=== PATIENT | male | born 1980 | race African-American/Black ===

== ENCOUNTER 2018-01-09 20:56 | Emergency (ER) | payer OTHER ==
[2018-01-09 21:12] VITALS: BP 137/95; PULSE 102; TEMP 99; BMI 25.0
--- NOTE | 2018-01-09 22:08 | PDOC ---
History of Present Illness - General Chief Complaint: Ingestion Stated Complaint: GIVEN WRONG MEDICATIONS AT [facility] Time Seen by Provider: 01/09/18 21:02 - History of Present Illness Initial Comments: This 37 y.o man, resident of [facility], history of bipolar disorder, presents to the ER with staff member with history of inadvertently been given medications of another resident instead of his own about 2 hours prior to presentation. Of note, medications mistakenly given include [place] and paliperidone. The patient has a history of haloperidol allergy listed but neither he nor staff member know what symptoms of the allergic reaction were. The patient states that he had "stomach ache" and mild nausea(no vomiting) soon after ingestion of meds. Only mild epigastric discomfort persists currently. Patient denies other symptoms Past History - Past Medical History Allergies/Adverse Reactions: Allergies Allergy/AdvReac Type Severity Reaction Status Date / Time Butyrophenones Allergy Verified 01/09/18 21:01 haloperidol [From Haldol] Allergy Verified 01/09/18 21:01 haloperidol lactate Allergy Verified 01/09/18 21:01 [From Haldol] Home Medications: Ambulatory Orders Divalproex [Depakote -] 750 mg PO BID 04/29/16 Docusate Sodium 300 mg PO HS 04/29/16 Fluticasone Propionate [Flonase Allergy Relief] 2 spray NS DAILY 04/29/16 Glycopyrrolate [Robinul Forte] 2 mg PO BID 04/29/16 Multivitamins [Tab-A-Vit -] 1 tab PO DAILY 04/29/16 COPD: No Psychiatric Problems: Yes (bipolar) - Immunization History Immunization Up to Date: Yes - Suicide/Smoking/Psychosocial Hx Smoking Status: No Smoking History: Never smoked Have you smoked in the past 12 months: No Number of Cigarettes Smoked Daily: 0 Information on smoking cessation initiated: No Hx Alcohol Use: No Drug/Substance Use Hx: No Substance Use Type: None *Physical Exam - Vital Signs Last Vital Signs Temp Pulse Resp BP Pulse Ox 99 F 102 H 18 137/95 100 01/09/18 21:07 01/09/18 21:07 01/09/18 21:07 01/09/18 21:07 01/09/18 21:07 - Physical Exam Comments: Physical Exam- Alert and oriented X3, fluent speech, no acute distress HEENT- Eyes: no conjunctival erythema/edema; pupils equal and reactive 3mm; no anterior chamber /scleral abnormalities Pharynx: moist mucous membranes, no edema/erythema/ masses Neck- supple, no masses or stridor Lungs-clear Cardiac- S1S2 normal, no xs,rubs,murmurs Abdomen-soft,non-tender, no masses or organomegaly Extremities- non-edematous, no tenderness or masses Neuro- Cranial nerve exam grossly intact, speech fluent, moving all 4 extremities equally Skin- no rashes/lesions/cyanosis Medical Decision Making - Medical Decision Making In order to R/O QT interval prolongation, 12 lead EKG performed and interpreted by me: NSR at 77/min, waveforms and axis are normal. Intervals(including QTc 393ms) are normal. No evidence of acute ST or T wave abnormalities Patient was given 30ml Maalox for epigastric discomfort with good relief. He was observed for an additional hour without development of new symptoms. The patient was discharged back to [facility] in the company of the staff member with advice to followup with general physician within 2 days. He should return to ER if severe symptoms occur *DC/Admit/Observation/Transfer Diagnosis at time of Disposition: Medication administered in error Qualifiers: Encounter type: initial encounter Injury intent: accidental or unintentional Qualified Code(s): T50.901A - Poisoning by unspecified drugs, medicaments and biological substances, accidental (unintentional), initial encounter - Discharge Dispostion Disposition: HOME Condition at time of disposition: Stable - Referrals - Patient Instructions Additional Instructions: return to ER if you have increased pain or experience shortness of breath/nausea can resume usual activities and medications followup with your doctor within 3-4 days - Post Discharge Activity
[2018-01-09] MEDS ORDERED: MAG HYDROX/AL HYDROX/SIMETH 30 ML UNIT-DOSE CUP PO ONE (22:15)
[2018-01-09] MEDS ORDERED: MAG HYDROX/AL HYDROX/SIMETH 30 ML UNIT-DOSE CUP ONE (22:17)
--- NOTE | 2018-01-10 23:56 | EKG ---
Test Reason : Blood Pressure : / mmHG Vent. Rate : 077 BPM Atrial Rate : 077 BPM P-R Int : 142 ms QRS Dur : 102 ms QT Int : 348 ms P-R-T Axes : 044 001 054 degrees QTc Int : 393 ms NORMAL SINUS RHYTHM NORMAL ECG WHEN COMPARED WITH ECG OF 29-APR-2016 09:33, NO SIGNIFICANT CHANGE WAS FOUND Confirmed by COLUMBA CODY MD ([id number]) on 01/10/2018 11:55:58 PM Referred By: DOROTHY Confirmed By:COLUMBA CODY MD
== END 2018-01-09 22:57 | disposition home or self-care (01) ==
LOC: FER 20:56
DX: T50.901A Poisoning by unspecified drugs, medicaments and biological substances, accidental (unintentional), initial encounter (principal); F31.9 Bipolar disorder, unspecified; X58.XXXA Exposure to other specified factors, initial encounter; Y93.89 Activity, other specified; Y92.159 Unspecified place in reform school as the place of occurrence of the external cause
CPT/HCPCS: 93005; 99281-25

== ENCOUNTER 2018-03-08 07:43 | Emergency (ER) | payer OTHER ==
[2018-03-08] MEDS ORDERED: ACETAMINOPHEN 325 MG TABLET (FP) ONE (07:52)
[2018-03-08] MEDS ORDERED: SODIUM CHLORIDE 1,000 ML IV STA (07:52)
[2018-03-08] MEDS ORDERED: ACETAMINOPHEN 500 MG TABLET (FP) PO ONE (07:53)
--- NOTE | 2018-03-08 07:54 | PDOC ---
History of Present Illness - General Stated Complaint: Syncope/Near Syncope Time Seen by Provider: 03/08/18 07:51 - History of Present Illness Initial Comments: 03/08/18 07:54 Mr. Almaguer is a 37 yo male w/ pmh of MR, psychotic disorder, bipolar disorder , and baseline tremor who presents for evaluation after syncopal episode earlier today after he began having generalized abdominal pain. Per patient he was standing making breakfast earlier today when he passed out and fell onto the ground. Per bystanders he did not hit his head. Mr. Almaguer is currently awake and oriented and reports he continues to have abdominal pain. The patient denies chest pain, shortness of breath, headache and dizziness. Denies fever, chills, nausea, vomit, diarrhea and constipation. Denies dysuria, frequency, urgency and hematuria. Allergies: Butyrophenones, haloperidol Past History - Past Medical History Allergies/Adverse Reactions: Allergies Allergy/AdvReac Type Severity Reaction Status Date / Time Butyrophenones Allergy Verified 01/09/18 21:01 haloperidol [From Haldol] Allergy Verified 01/09/18 21:01 haloperidol lactate Allergy Verified 01/09/18 21:01 [From Haldol] Home Medications: Ambulatory Orders Divalproex [Depakote -] 1,250 mg PO BID 04/29/16 Docusate Sodium 300 mg PO HS 04/29/16 Fluticasone Propionate [Flonase Allergy Relief] 2 spray NS DAILY 04/29/16 Glycopyrrolate [Robinul Forte] 4 mg PO BID 04/29/16 Multivitamins [Tab-A-Vit -] 1 tab PO DAILY 04/29/16 Clozapine [Clozaril] 500 mg PO HS 03/08/18 COPD: No Psychiatric Problems: Yes (bipolar) - Immunization History Immunization Up to Date: Yes - Suicide/Smoking/Psychosocial Hx Smoking Status: No Smoking History: Never smoked Have you smoked in the past 12 months: No Number of Cigarettes Smoked Daily: 0 Hx Alcohol Use: No Drug/Substance Use Hx: No Substance Use Type: None Review of Systems - Review of Systems Comments:: 03/08/18 07:56 GENERAL/CONSTITUTIONAL: +1-2 days of subjective fever. No chills. No weakness. HEAD, EYES, EARS, NOSE AND THROAT: No change in vision. No ear pain or discharge. No sore throat. CARDIOVASCULAR: No chest pain or shortness of breath RESPIRATORY: +1-2 days of cough. No wheezing, or hemoptysis. GASTROINTESTINAL: +Generalized abdominal pain prior to episode. No nausea, vomiting, diarrhea or constipation. GENITOURINARY: No dysuria, frequency, or change in urination. MUSCULOSKELETAL: No joint or muscle swelling or pain. No neck or back pain. SKIN: No rash NEUROLOGIC: No headache, vertigo, loss of consciousness, or change in strength/ sensation. ENDOCRINE: No increased thirst. No abnormal weight change HEMATOLOGIC/LYMPHATIC: No anemia, easy bleeding, or history of blood clots. ALLERGIC/IMMUNOLOGIC: No hives or skin allergy. *Physical Exam - Physical Exam Comments: 03/08/18 07:56 GENERAL: Awake, alert, and fully oriented, in no acute distress HEAD: No signs of trauma, normocephalic, atraumatic EYES: PERRLA, EOMI, sclera anicteric, conjunctiva clear ENT: Auricles normal inspection, hearing grossly normal, nares patent, oropharynx clear without exudates. Moist mucosa NECK: Normal ROM, supple, no lymphadenopathy, JVD, or masses LUNGS: No distress, speaks full sentences, clear to auscultation bilaterally HEART: Regular rate and rhythm, normal S1 and S2, no murmurs, rubs or gallops, peripheral pulses normal and equal bilaterally. ABDOMEN: +Abdominal pain generalized and distractable. Soft, normoactive bowel sounds. No guarding, no rebound. No masses EXTREMITIES: Normal inspection, Normal range of motion, no edema. No clubbing or cyanosis. NEUROLOGICAL: Cranial nerves II through XII grossly intact. Normal speech, normal gait, no focal sensorimotor deficits SKIN: Warm, Dry, normal turgor, no rashes or lesions noted. ED Treatment Course - LABORATORY CBC & Chemistry Diagram: 03/08/18 08:15 03/08/18 10:50 Medical Decision Making - Medical Decision Making 03/08/18 10:32 Mr. Almaguer is a 37 yo male w/ pmh as described who presents for evaluation after syncopal episode earlier today. Patient reported single event where patient lost conciousness and was caught by nursing home personel. Patient quickly regained conciousness and was back to his normal self. Did not experience any seizure activity, loss of bowel or bladder function. 03/08/18 11:34 Labs grossly unconcerning as below. CXR negative for acute process. EKG normal. Repeat vitals wnl. Discharging patient to home w/ outpatient follow-up for further evaluation. Laboratory Results - last 24 hr 03/08/18 03/08/18 03/08/18 08:15 08:15 08:15 WBC 7.4 RBC 5.96 H Hgb 15.7 D Hct 47.6 MCV 79.9 L MCH 26.3 MCHC 32.9 RDW 15.9 Plt Count 144 MPV 10.3 Absolute Neuts (auto) 5.6 Neutrophils % 74.7 D Lymphocytes % 12.5 D Monocytes % 9.6 Eosinophils % 2.9 Basophils % 0.3 Nucleated RBC % 0 PT with INR 13.50 H INR 1.19 H PTT (Actin FS) 40.5 H Sodium Potassium Chloride Carbon Dioxide Anion Gap BUN Creatinine Creat Clearance w eGFR Random Glucose Lactic Acid Calcium Total Bilirubin AST ALT Alkaline Phosphatase Creatine Kinase Troponin I Total Protein Albumin Urine Color Nicole Urine Appearance Clear Urine pH 6.0 Ur Specific [place] 1.034 Urine Protein 1+ H Urine Glucose (UA) Negative Urine Ketones Trace H Urine Blood Negative Urine Nitrite Negative Urine Bilirubin Negative Urine Urobilinogen 4.0 e.u/dl Ur Leukocyte Esterase Negative Urine WBC (Auto) <1 Urine RBC (Auto) 5 Ur Epithelial Cells Rare Hyaline Casts 1 Urine Mucus Rare 03/08/18 03/08/18 03/08/18 08:15 08:15 10:50 WBC RBC Hgb Hct MCV MCH MCHC RDW Plt Count MPV Absolute Neuts (auto) Neutrophils % Lymphocytes % Monocytes % Eosinophils % Basophils % Nucleated RBC % PT with INR INR PTT (Actin FS) Sodium Cancelled 140 Potassium Cancelled 3.8 Chloride Cancelled 108 H Carbon Dioxide Cancelled 25 Anion Gap Cancelled 7 L BUN Cancelled 16 Creatinine Cancelled 1.0 Creat Clearance w eGFR Cancelled > 60 Random Glucose Cancelled 155 H D Lactic Acid 1.3 Calcium Cancelled 8.4 L Total Bilirubin Cancelled 0.3 AST Cancelled 31 D ALT Cancelled 38 D Alkaline Phosphatase Cancelled 58 Creatine Kinase 279 Troponin I Cancelled < 0.02 Total Protein Cancelled 6.6 Albumin Cancelled 3.4 Urine Color Urine Appearance Urine pH Ur Specific [place] Urine Protein Urine Glucose (UA) Urine Ketones Urine Blood Urine Nitrite Urine Bilirubin Urine Urobilinogen Ur Leukocyte Esterase Urine WBC (Auto) Urine RBC (Auto) Ur Epithelial Cells Hyaline Casts Urine Mucus *DC/Admit/Observation/Transfer Diagnosis at time of Disposition: URI (upper respiratory infection) Qualifiers: URI type: unspecified URI Qualified Code(s): J06.9 - Acute upper respiratory infection, unspecified - Discharge Dispostion Disposition: HOME - Referrals Referrals: ON STAFF,NOT [Primary Care Provider] - - Patient Instructions Printed Discharge Instructions: DI for Syncope in Adults (Fainting) Additional Instructions: Please follow-up with primary care provider for further evaluation. Return to ER if any altered mental status, further syncope, headache, fever, chills, or other concerning symptoms. - Post Discharge Activity
[2018-03-08 07:59] VITALS: BMI 27.7
[2018-03-08 08:47] LABS: URINE APPEARANCE CLEAR; URINE BILIRUBIN NEGATIVE (<2.0 mg/dL); URINE BLOOD NEGATIVE (NEGATIVE); URINE COLOR AMBER; URINE GLUCOSE (UA) NEGATIVE (NEGATIVE); URINE KETONE TRACE (NEGATIVE); URINE LEUK ESTERASE NEGATIVE (NEGATIVE); URINE NITRITE NEGATIVE (NEGATIVE); URINE UROBILINOGEN 4.0 E.U/dl mg/dL (0.2-1.0)
[2018-03-08 08:48] LABS: BASO % 0.3 % (0-2.0); EOS % 2.9 % (0-4.5); HEMATOCRIT 47.6 % (35.4-49); HEMOGLOBIN 15.7 GM/dL (11.7-16.9); LYMPH % 12.5 % (8-40); MCH 26.3 pg (25.7-33.7); MCHC 32.9 g/dl (32.0-35.9); MEAN CELL VOLUME 79.9 fl (80-96); MEAN PLT VOLUME 10.3 fl (7.5-11.1); MONO % 9.6 % (3.8-10.2); NEUT % 74.7 % (42.8-82.8); PLATELET COUNT 144 K/MM3 (134-434); RBC 5.96 M/mm3 (4.00-5.60); RDW 15.9 % (11.9-15.9); URINE PROTEIN 1+ (NEGATIVE); WHITE BLOOD COUNT 7.4 K/mm3 (4.0-10.0)
[2018-03-08 08:51] LABS: EPI CELLS RARE /HPF (FEW); URINE HYALINE CAST 1 /lpf; URINE MUCUS RARE
[2018-03-08 08:53] LABS: INR 1.19 (0.82-1.09); PROTHROMBIN TIME (PATIENT) 13.5 SEC (9.7-13.0)
[2018-03-08 08:56] LABS: ACTIVATED PTT 40.5 SECONDS (26.9-34.4)
--- NOTE | 2018-03-08 10:33 | PDOC ---
Attending Attestation - Resident Resident Name: Ricky Ha - ED Attending Attestation I have performed the following: I have examined & evaluated the patient, The case was reviewed & discussed with the resident, I agree w/resident's findings & plan - HPI HPI: 03/08/18 10:32 37-year-old male with history of bipolar, MR from [facility] after syncopal episode. Patient was in his usual state of normal health, experienced some abdominal pain while standing making breakfast, became very lightheaded and lost consciousness for 1-2 seconds. There was no injury, he was caught by bystanders, and was awake by the time he was caught. Brought here by EMS, currently without any complaints whatsoever. No history of recurring syncope, no vomiting or diarrhea, no headache, per staff no mental status change and he is back to baseline. No seizure activity. - Physicial Exam PE: 03/08/18 10:40 VSS very well appearing, pleasant, high-fiving staff no trauma neuro nonfocal baseline mild MR no murmur, heart regular. lungs clear. abd soft/nt/nd bs nl trauma exam normal - Medical Decision Making 03/08/18 10:42 37-year-old male from [facility] presents with near syncope in the setting of resolved abdominal pain. No injury, no evidence of seizure activity, currently well-appearing with normal vital signs and no other red flags on history or physical exam. Check labs Antipyretics, IV fluids Flu and strep are negative, chest x-ray is negative, lactate is negative Reassess Heart Score/ECG Review #1 General ECG Interpretation: Sinus Rhythm, Normal Rate, Normal Intervals (nl qtc and qrs), No acute ischemic changes
[2018-03-08 11:11] VITALS: BP 131/70; PULSE 63; TEMP 98.4
[2018-03-08 11:14] LABS: ALBUMIN 3.4 g/dl (3.4-5.0); ANION GAP 7 (8-16); BILIRUBIN,TOTAL 0.3 mg/dL (0.2-1.0); BLOOD UREA NITROGEN 16 mg/dL (7-18); CALCIUM 8.4 mg/dL (8.5-10.1); CHLORIDE 108 mmol/L (98-107); CO2 25 mmol/L (21-32); GLUCOSE,RANDOM 155 mg/dL (74-106); POTASSIUM 3.8 mmol/L (3.5-5.1); SGOT/AST 31 U/L (15-37); SGPT/ALT 38 U/L (12-78); SODIUM 140 mmol/L (136-145); TOT PROT 6.6 g/dl (6.4-8.2)
[2018-03-08 11:17] LABS: ALK PHOS 58 U/L (45-117)
--- NOTE | 2018-03-08 12:13 | EKG ---
Test Reason : Blood Pressure : / mmHG Vent. Rate : 102 BPM Atrial Rate : 102 BPM P-R Int : 128 ms QRS Dur : 088 ms QT Int : 334 ms P-R-T Axes : 052 -13 071 degrees QTc Int : 435 ms SINUS TACHYCARDIA OTHERWISE NORMAL ECG WHEN COMPARED WITH ECG OF 09-JAN-2018 22:37, NO SIGNIFICANT CHANGE WAS FOUND Confirmed by MD SMITHA, LIO ([id number]) on 03/08/2018 12:13:10 PM Referred By: Confirmed By:LIO BONE MD
== END 2018-03-08 12:03 | disposition home or self-care (01) ==
LOC: JER 07:43
PROC: 3E0337Z Introduction of Electrolytic and Water Balance Substance into Peripheral Vein, Percutaneous Approach (ICD-10-PCS; principal; 2018-03-08)
DX: J06.9 Acute upper respiratory infection, unspecified (principal); R55 Syncope and collapse; F31.9 Bipolar disorder, unspecified
CPT/HCPCS: 71045-TC-FY; 80053; 81003; 81015; 82550; 82553; 83605; 84484; 85025; 85610; 85730; 87040; 87070; 87430; 87804; 93005; 93010; 96360; 99284-25; J7030

== ENCOUNTER 2018-03-28 10:08 | Emergency (ER) | payer OTHER ==
[2018-03-28 10:16] VITALS: BP 122/77; PULSE 84; TEMP 98.8; BMI 23.6
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
== END 2018-03-28 12:55 | disposition home or self-care (01) ==
LOC: FER 10:08
DX: Z04.1 Encounter for examination and observation following transport accident (principal); V77.1XXA Passenger on bus injured in collision with fixed or stationary object in nontraffic accident, initial encounter; Y93.89 Activity, other specified; Y92.410 Unspecified street and highway as the place of occurrence of the external cause; F79 Unspecified intellectual disabilities
CPT/HCPCS: 99281-25

== ENCOUNTER 2018-03-30 16:05 | Emergency (ER) | payer OTHER ==
[2018-03-30 16:29] VITALS: BP 127/91; PULSE 101; TEMP 98.9; BMI 28.5
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
[2018-03-30] MEDS ORDERED: DIPHTH,PERTUSS(ACELL),TET 0.5 ML DISP.SYRIN IM ONE (16:45)
== END 2018-03-30 17:39 | disposition home or self-care (01) ==
LOC: FER 16:05
DX: S51.851A Open bite of right forearm, initial encounter (principal); S00.81XA Abrasion of other part of head, initial encounter; Y04.1XXA Assault by human bite, initial encounter; X58.XXXA Exposure to other specified factors, initial encounter; Y93.89 Activity, other specified; Y92.153 Bedroom in reform school as the place of occurrence of the external cause; F79 Unspecified intellectual disabilities
CPT/HCPCS: 90715; 99283-25